=== PATIENT | female | born 1945 | race Caucasian/White ===

== ENCOUNTER → 2022-10-09 | Outpatient (CLI) | payer MEDICARE, OTHER ==
--- NOTE | 2022-10-09 17:06 | Diagnostic Imaging Report ---
INDICATION: Pain. Three view bilateral wrist performed. COMPARISON: No priors. FINDINGS: There are severe arthritic changes most advanced at the 1st CMCs bilaterally but significantly involving all joints. No erosive component. No fracture or dislocation. Disease burden is bilaterally somewhat greater right than left. 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 Somewhat greater right than left with no fracture or acute bony abnormality. Dictated by: Dictated on workstation # [id number]
== END ==
LOC: ORTHO 09:32
PROVIDERS: ATTEND Orthopaedic Surgery
DX: M19.032 Primary osteoarthritis, left wrist (principal); M19.031 Primary osteoarthritis, right wrist
CPT/HCPCS: 73110; G0463; 99213

== ENCOUNTER 2022-10-20 05:30 | Outpatient (CLI) | payer MEDICARE, OTHER ==
[~2022-10-20] VITALS: Ht 154.9 cm; Wt 78.1 kg
== END 2022-10-20 16:39 | disposition home or self-care (01) ==
LOC: PREOP 05:30
PROVIDERS: ATTEND Orthopaedic Surgery
DX: Z01.818 Encounter for other preprocedural examination (principal)

== ENCOUNTER 2022-10-27 06:21 | Day surgery (SDC) | payer MEDICARE, OTHER ==
[2022-10-27] VITALS (8 sets, daily range): BP systolic 103–136; BP diastolic 60–91
[~2022-10-27] VITALS: Ht 154.9 cm; Wt 78.1 kg
[2022-10-27] MEDS ORDERED: LACTATED RINGERS 1,000 ML IV PRN (06:30)
[2022-10-27] MEDS ORDERED: ceFAZolin INJECTION 1,000 MG in NS (IVPB) 50 ML IV ONE (06:30)
[2022-10-27] MEDS ORDERED: LIDOCAINE/EPI 1%-1:100,000 (XYLOCAINE) 20ML ONE (06:52)
[2022-10-27] MEDS ORDERED: BUPIVACAINE 0.5% 30 ML (SENSORCAINE) VIAL ONE (06:52)
[2022-10-27] MEDS ORDERED: MIDAZOLAM 2 MG/2 ML (VERSED) VIAL ONE (06:52)
[2022-10-27] MEDS ORDERED: fentaNYL INJ 100 MCG/2 ML AMP ONE (06:52)
[2022-10-27] MEDS ORDERED: PROPOFOL INJECTION 50 ML IV ONE (06:52)
[2022-10-27] MEDS ORDERED: LIDOCAINE 1% INJ 20 ML VIAL ONE (06:52)
[2022-10-27] MEDS ORDERED: CATHETER FLUSH 10 ML SYR IVP PRN (07:00)
[2022-10-27] MEDS ORDERED: NEO/POLY/BAC (NEOSPORIN) OINT 15 GM TUBE ONE (07:06)
[2022-10-27] MEDS ORDERED: ANAS5POW2 MC (07:16)
[2022-10-27] MEDS ORDERED: OXYB5TAB13 PO (07:16)
[2022-10-27] MEDS ORDERED: COLO400C PO (07:16)
[2022-10-27] MEDS ORDERED: MTP100TCR PO (07:16)
[2022-10-27] MEDS ORDERED: ASPI-1238 PO (07:16)
[2022-10-27] MEDS ORDERED: VITA1TAB78 PO (07:16)
[2022-10-27] MEDS ORDERED: MECO10005 PO (07:16)
[2022-10-27] MEDS ORDERED: PANT40TA52 PO (07:16)
[2022-10-27] MEDS ORDERED: PRAV40TA2 PO (07:16)
[2022-10-27] MEDS ORDERED: UBID200C16 PO (07:16)
[2022-10-27] MEDS ORDERED: BUPIVACAINE 0.5% 30 ML (SENSORCAINE) VIAL INJ ONE (07:44)
[2022-10-27] MEDS ORDERED: LIDOCAINE 1% INJ 20 ML VIAL INJ ONE (07:51)
[2022-10-27] MEDS ORDERED: LIDOCAINE/EPI 1%-1:100,000 (XYLOCAINE) 20ML INJ ONE (07:52)
[2022-10-27] MEDS ORDERED: NEO/POLY/BAC (NEOSPORIN) OINT 15 GM TUBE TOP ONE (07:54)
[2022-10-27] MEDS ORDERED: ONDANSETRON 4 MG/2 ML (SDV) Z0FRAN ONE (08:00)
--- NOTE | 2022-10-27 08:04 | Progress Note-Pre Operative ---
Pre-Operative Progress Note Date of Available H&P: Oct 09, 2022 Date H&P Reviewed: Oct 27, 2022 Time H&P Reviewed: 07:10 History & Physical: H&P Reviewed, Patient Examed, No changes noted Pre-Operative Diagnosis: Right Carpal Tunnel Syndrome WADE ABDALLA MD Oct 27, 2022 08:03
--- NOTE | 2022-10-27 08:06 | Operative Report - Ortho ---
Operative Report Surgeon (s)/Global Compensation Manager (s) Surgeon WADE ABDALLA MD Global Compensation Manager n/a Pre-Operative Diagnosis Right Carpal Tunnel Syndrome Post-Operative Diagnosis same Operative Report Date of Procedure: Oct 27, 2022 Name of Procedure Performed: Right Carpal Tunnel Release Description & Findings After obtaining informed consent and marking the patient in the preoperative holding area, the patient was administered IV antibiotics. The patient was taken to the operating room and sedation was induced. Local anesthetic was placed. The right upper extremity was prepped and draped in the usual sterile fashion. Surgical timeout was taken. Incision was made just ulnar to the thenar crease. Blunt dissection was carried down to the longitudinal fibers of the palmar fascia; these were divided in line revealing the transverse carpal ligament. Beginning distally and working proximally, carpal tunnel release was performed. Nerve protector was placed and release was completed back to the level of the forearm fascia. Probe was inserted and release was palpably complete. Tourniquet was dropped and hemostasis was achieved. Wound was closed with 4-0 nylon. Wound was dressed with antibiotic ointment, xeroform, 4x4s, garrett, ABD for soft splint, cast padding, and LIAM wrap. Patient tolerated the procedure well and was stable to the recovery room. Anesthesia Type MAC plus Local Estimated Blood Loss minimal Specimen(s) collected/removed None WADE BADALLA MD Oct 27, 2022 08:06
[2022-10-27] MEDS ORDERED: TRAM50TA3 PO (08:08)
--- NOTE | 2022-10-27 08:10 | Anesthesia-General Post-Op ---
MAC Patient Condition Mental Status/LOC: Same as Preop Cardiovascular: Satisfactory Nausea/Vomiting: Absent Respiratory: Satisfactory Pain: Controlled Complications: Absent Post Op Complications Complications None Follow Up Care/Instructions Patient Instructions None needed. Anesthesiology Discharge Order Discharge Order Patient is doing well, no complaints, stable vital signs, no apparent adverse anesthesia problems. No complications reported per nursing. HAO MORRISON CRNA Oct 27, 2022 08:10
[2022-10-27] MEDS ORDERED: MEPERIDINE (DEMEROL) INJ 50 MG/ML IVP ONE (08:15)
[2022-10-27] MEDS ORDERED: ONDANSETRON 4 MG/2 ML (SDV) Z0FRAN IVP PRN (08:15)
[2022-10-27] MEDS ORDERED: fentaNYL INJ 100 MCG/2 ML AMP IVP ONE (08:15)
[2022-10-27] MEDS ORDERED: morphine INJ 10 MG/ML 1ML (SYR OR VIAL) IVP ONE (08:15)
== END 2022-10-27 09:20 | disposition home or self-care (01) ==
LOC: SDC 06:21
PROVIDERS: ATTEND Orthopaedic Surgery
DX: G56.03 Carpal tunnel syndrome, bilateral upper limbs (principal); Z85.3 Personal history of malignant neoplasm of breast; K21.9 Gastro-esophageal reflux disease without esophagitis; Z79.899 Other long term (current) drug therapy
CPT/HCPCS: 87081

== ENCOUNTER → 2022-11-11 | Outpatient (CLI) | payer MEDICARE, OTHER ==
[~2022-11-11] MED LIST: ANAS5POW2 MC; ASPI-1238 PO; COLO400C PO; MECO10005 PO; MTP100TCR PO; OXYB5TAB13 PO; PANT40TA52 PO; PRAV40TA2 PO; TRAM50TA3 PO; UBID200C16 PO; VITA1TAB78 PO
== END ==
LOC: ORTHO 10:13
PROVIDERS: ATTEND Orthopaedic Surgery
DX: Z47.89 Encounter for other orthopedic aftercare (principal)

== ENCOUNTER → 2022-12-08 | Outpatient (CLI) | payer MEDICARE, OTHER | LOC: ORTHO 13:41 | PROVIDERS: ATTEND Orthopaedic Surgery | DX: Z47.89 Encounter for other orthopedic aftercare (principal) ==

== ENCOUNTER → 2022-12-11 | Outpatient (CLI) | payer MEDICARE, OTHER | LOC: ORTHO 08:12 | PROVIDERS: ATTEND Orthopaedic Surgery | DX: Z47.89 Encounter for other orthopedic aftercare (principal) ==

== ENCOUNTER 2023-03-13 05:30 | Outpatient (CLI) | payer MEDICARE, OTHER ==
[~2023-03-13] VITALS: Ht 154.9 cm; Wt 75.0 kg
[2023-03-13] MEDS ORDERED: GRAP50CA5 PO (14:28)
[2023-03-13] MEDS ORDERED: COLL1CAP PO (14:28)
[2023-03-13] MEDS ORDERED: TUME1CAP PO (14:28)
[2023-03-13] MEDS ORDERED: HYAL60CA PO (14:28)
== END 2023-03-13 14:44 | disposition home or self-care (01) ==
LOC: PREOP 05:30
PROVIDERS: ATTEND Orthopaedic Surgery
DX: Z01.818 Encounter for other preprocedural examination (principal)

== ENCOUNTER 2023-03-20 06:01 | Day surgery (SDC) | payer MEDICARE, OTHER ==
[~2023-03-20] VITALS: Ht 154.9 cm; Wt 75.0 kg
[2023-03-20] VITALS (7 sets, daily range): BP systolic 116–135; BP diastolic 62–80
[~2023-03-20 06:01] MED LIST changes: +COLL1CAP PO; +GRAP50CA5 PO; +HYAL60CA PO; +TUME1CAP PO
[2023-03-20] MEDS ORDERED: LACTATED RINGERS 1,000 ML 1,000 ML IV PRN (06:15)
[2023-03-20] MEDS ORDERED: ceFAZolin INJECTION 2,000 MG in NS (IVPB) 50 ML 50 ML IV ONE (06:15)
[2023-03-20] MEDS ORDERED: MIDAZOLAM INJ 2 MG/2 ML VIAL ONE (06:59)
[2023-03-20] MEDS ORDERED: BUPIVACAINE 0.5% 10 ML VIAL ONE (07:11)
[2023-03-20] MEDS ORDERED: LIDOCAINE/EPI 1%-1:200,000 (XYLOCAINE) 30 ML VIAL ONE (07:11)
[2023-03-20] MEDS ORDERED: LIDOCAINE 1% INJ 20 ML VIAL ONE (07:11)
[2023-03-20] MEDS ORDERED: Neomycin/Polymixin/Bacitracin OINTMENT 15 GM ONE (07:20)
[2023-03-20] MEDS ORDERED: LIDOCAINE 1% INJ 20 ML VIAL INJ ONE (08:02)
[2023-03-20] MEDS ORDERED: LIDOCAINE/EPI 1%-1:200,000 (XYLOCAINE) 30 ML VIAL INJ ONE (08:04)
[2023-03-20] MEDS ORDERED: Neomycin/Polymixin/Bacitracin OINTMENT 15 GM TOP ONE (08:06)
--- NOTE | 2023-03-20 08:18 | Operative Report - Ortho ---
Operative Report Surgeon (s)/Business Management Professor (s) Surgeon WADE ABDALLA MD Business Management Professor n/a Pre-Operative Diagnosis Left Carpal Tunnel Syndrome Post-Operative Diagnosis same Operative Report Date of Procedure: Mar 20, 2023 Name of Procedure Performed: Left Carpal Tunnel Release Description & Findings After obtaining informed consent and marking the patient in the preoperative holding area, the patient was administered IV antibiotics. The patient was t aken to the operating room and sedation was induced. Local anesthetic was placed. The left upper extremity was prepped and draped in the usual sterile fashion. Surgical timeout was taken. Incision was made just ulnar to the thenar crease. Blunt dissection was carried down to the longitudinal fibers of the palmar fascia; these were divided in line revealing the transverse carpal ligament. Beginning distally and working proximally, carpal tunnel release was performed. Nerve protector was placed and release was completed back to the level of the forearm fascia. Probe was inserted and release was palpably complete. Tourniquet was dropped and hemostasis was achieved. Wound was closed with 4-0 nylon. Wound was dressed with antibiotic ointment, xeroform, 4x4s, garrett, ABD for soft splint, cast padding, and LIAM wrap. Patient tolerated the procedure well and was stable to the recovery room. Anesthesia Type MAC plus local Estimated Blood Loss minimal Specimen(s) collected/removed None WADE ABDALLA MD Mar 20, 2023 08:18
[2023-03-20] MEDS ORDERED: OXC5T PO (08:20)
--- NOTE | 2023-03-20 08:27 | Anesthesia-General Post-Op ---
MAC Patient Condition Mental Status/LOC: Same as Preop Cardiovascular: Satisfactory Nausea/Vomiting: Absent Respiratory: Satisfactory Pain: Controlled Complications: Absent Post Op Complications Complications None Follow Up Care/Instructions Patient Instructions None needed. Anesthesiology Discharge Order Discharge Order Patient is doing well, no complaints, stable vital signs, no apparent adverse anesthesia problems. No complications reported per nursing. CORTEZ PAGE CRNA Mar 20, 2023 08:27
[2023-03-20] MEDS ORDERED: HYDROmorphone INJECTION 2 MG/ML VIAL IV ONE (08:30)
[2023-03-20] MEDS ORDERED: ONDANSETRON INJECTION 4 MG/2 ML (SDV) IVP PRN (08:30)
== END 2023-03-20 09:50 | disposition home or self-care (01) ==
LOC: SDC 06:01
PROVIDERS: ATTEND Orthopaedic Surgery
DX: G56.02 Carpal tunnel syndrome, left upper limb (principal)
CPT/HCPCS: 87081

== ENCOUNTER → 2023-03-31 | Outpatient (CLI) | payer MEDICARE, OTHER ==
[~2023-03-31] MED LIST changes: +OXC5T PO
== END ==
LOC: ORTHO 10:01
PROVIDERS: ATTEND Orthopaedic Surgery
DX: Z47.89 Encounter for other orthopedic aftercare (principal); M75.122 Complete rotator cuff tear or rupture of left shoulder, not specified as traumatic

== ENCOUNTER → 2023-04-29 | Outpatient (CLI) | payer MEDICARE, OTHER ==
[~2023-04-29] MED LIST changes: -OXYB5TAB13 PO; +OXYB5TAB14 PO
== END ==
LOC: ORTHO 08:40
PROVIDERS: ATTEND Orthopaedic Surgery
DX: Z47.89 Encounter for other orthopedic aftercare (principal)

== ENCOUNTER → 2023-06-02 | Outpatient (CLI) | payer MEDICARE, OTHER | LOC: ORTHO 08:30 | PROVIDERS: ATTEND Orthopaedic Surgery | DX: M75.122 Complete rotator cuff tear or rupture of left shoulder, not specified as traumatic (principal) | CPT/HCPCS: 99213 ==